=== PATIENT | male | born 1980 | race Caucasian/White ===

== ENCOUNTER 2018-03-08 15:56 | Emergency (ER) | payer MEDICAID ==
[~2018-03-08] VITALS: Ht 165.1 cm; Wt 54.4 kg
[2018-03-08 16:27] VITALS: Ht 165.1 cm; Wt 54.4 kg
[2018-03-08 21:30] VITALS: BP 141/110
== END 2018-03-08 21:30 | disposition home or self-care (01) ==
LOC: ED 15:56
DX: S02.2XXA Fracture of nasal bones, initial encounter for closed fracture (principal); S00.12XA Contusion of left eyelid and periocular area, initial encounter; F12.10 Cannabis abuse, uncomplicated; I10 Essential (primary) hypertension; J45.909 Unspecified asthma, uncomplicated; M19.90 Unspecified osteoarthritis, unspecified site; Y04.0XXA Assault by unarmed brawl or fight, initial encounter; Y93.89 Activity, other specified; Y92.89 Other specified places as the place of occurrence of the external cause; Y99.8 Other external cause status

== ENCOUNTER 2018-06-19 07:51 | Emergency (ER) | payer MEDICAID ==
[~2018-06-19] VITALS: Ht 165.1 cm; Wt 53.1 kg
[2018-06-19 07:53] VITALS: Ht 165.1 cm; Wt 53.1 kg
[2018-06-19 08:46] VITALS: BP 198/127
== END 2018-06-19 08:46 | disposition home or self-care (01) ==
LOC: ED 07:51
DX: S40.012A Contusion of left shoulder, initial encounter (principal); J45.909 Unspecified asthma, uncomplicated; I10 Essential (primary) hypertension; M19.90 Unspecified osteoarthritis, unspecified site; Z88.5 Allergy status to narcotic agent; W10.8XXA Fall (on) (from) other stairs and steps, initial encounter; Y93.89 Activity, other specified; Y99.8 Other external cause status; Y92.89 Other specified places as the place of occurrence of the external cause
CPT/HCPCS: Q0092

== ENCOUNTER 2018-12-23 15:40 | Emergency (ER) | payer OTHER ==
[~2018-12-23] VITALS: Ht 162.6 cm; Wt 52.2 kg
[2018-12-23 15:43] VITALS: Ht 162.6 cm; Wt 52.2 kg
[2018-12-23 18:34] VITALS: BP 166/98
== END 2018-12-23 18:34 | disposition home or self-care (01) ==
LOC: ED 15:40
DX: R04.0 Epistaxis (principal); J45.909 Unspecified asthma, uncomplicated; I10 Essential (primary) hypertension; M19.90 Unspecified osteoarthritis, unspecified site; Z98.890 Other specified postprocedural states; Z88.5 Allergy status to narcotic agent